=== PATIENT | male | born 1990 ===

== ENCOUNTER 2022-04-02 06:40 | Emergency (ER) | payer SELFPAY ==
[2022-04-02 06:47] VITALS: TEMP 97.6
[2022-04-02] MEDS ORDERED: DIPH,PERTUS(ACELL)TETVAC-LF 0.5 ML VIAL IM ONE (06:53)
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
[2022-04-02 08:00] VITALS: BP 134/78; PULSE 68; RESP 16
== END 2022-04-02 08:00 | disposition home or self-care (01) ==
LOC: EC 06:40
DX: S01.01XA Laceration without foreign body of scalp, initial encounter (principal); V89.2XXA Person injured in unspecified motor-vehicle accident, traffic, initial encounter
CPT/HCPCS: 12002; 70450; 72125; 99284